=== PATIENT | female | born 1945 | race Caucasian/White ===

== ENCOUNTER 2017-06-13 18:19 | Emergency (ER) | payer OTHER ==
[~2017-06-13] VITALS: Ht 167.6 cm; Wt 75.0 kg
[~2017-06-13 18:19] MED LIST: ATOR80TA PO; METO50TA PO; OMEP20TA39 PO
[2017-06-13 18:22] VITALS: BP 142/89; PULSE 96; RESP 20; TEMP 98.3; O2SAT 96
--- NOTE | 2017-06-13 18:44 | PD ---
Physical Exam Date Seen by Provider: Jun 13, 2017 Time Seen by Provider: 18:40 Data Data Last Documented VS Vital Signs Date Time Temp Pulse Resp B/P (MAP) Pulse Ox O2 Delivery O2 Flow Rate FiO2 06/13/17 18:22 98.3 96 20 142/89 (106) 96 Room Air MDM Supervised Visit with RYAN: No Narrative Course 71 YO F with complaint of BLE swelling and "pressure in my belly." Endorses SOB x "a few weeks." CHAKRABORTY with walking to the mailbox today. Saw PCP this week and was diagnosed with A Fib. PCP Marisa Shirley. Vitals reviewed. Patient seen in triage, awaiting bed placement. Inge Perez Jun 13, 2017 18:44
[2017-06-13 19:05] VITALS: BP 128/68; PULSE 84; RESP 16; TEMP 98.9; O2SAT 97
--- NOTE | 2017-06-13 19:12 | PD ---
HPI Chief Complaint: Edema Time Seen by Provider: 19:10 Travel History International Travel<30 days: No Contact w/Intl Traveler<30days: No Traveled to known affect area: No History of Present Illness HPI 71-year-old female came to the emergency room with history of 10 pounds weight gain in past 2 weeks. She also noticed that both her ankles are swollen and her abdomen seems bigger and mead. Patient was diagnosed with atrial fibrillation couple days ago by her primary care and she was started on diltiazem and Eliquis for that. Patient says that the ankle swelling was just noticed today and that's what alarmed her and she is in the emergency room. No history of chest pain or shortness of breath. She does get tired after walking some. Vital signs are stable. She does not appear to be in any distress. She is in A. fib on the monitor. [facility] Past Medical History Narrative Medical List of her allergies reviewed from the nursing note. Cardiovascular Problems: Yes ?: Not Past Surgical History Hysterectomy: Yes Social History Tobacco Use: No Allergies-Medications (Allergen,Severity, Reaction): Coded Allergies: fish oil (Verified Allergy, Severe, 06/13/17) Red eyes rosuvastatin (Verified Allergy, Severe, 06/13/17) Leg cramping Comments List of the allergies reviewed from the nursing note. Reported Meds & Prescriptions Reported Meds & Active Scripts Active Reported Lorazepam 0.5 Mg Tab 0.5 Mg PO BID PRN Fenofibrate 54 Mg Tab 54 Mg PO DAILY Milk Thistle (Milk Thistle Seed Extract) 200 Mg Capsule 1,000 Mg PO DAILY Omeprazole 40 Mg Cap 40 Mg PO DAILY Metoprolol Tartrate 50 Mg Tab 50 Mg PO BID D3-1000 (Cholecalciferol) 1,000 Unit Cap 1 Cap PO DAILY Co Q 10 (Coenzyme Q10 (Ubidecarenone)) 100 Mg-5 Unit Cap 1 Tab PO DAILY Magnesium Elemental (Magnesium) 30 Mg Tab 250 Mg PO DAILY Atorvastatin (Atorvastatin Calcium) 80 Mg Tab 80 Mg PO HS Aspirin 325 Mg Tab 325 Mg PO DAILY Eliquis (Apixaban) 5 Mg Tab 5 Mg PO BID Diltiazem HCl ER (Diltiazem HCl Extended Release) 120 Mg Cap 1 Cap PO BID Narrative Medication List of her home medications reviewed from the nursing note. Review of Systems Except as stated in HPI: all other systems reviewed are Neg Physical Exam Narrative GENERAL: Awake, alert, no obvious distress SKIN: Focused skin assessment warm/dry. HEAD: Atraumatic. Normocephalic. EYES: Pupils equal and round. No scleral icterus. No injection or drainage. ENT: No nasal bleeding or discharge. Mucous membranes pink and moist. NECK: Trachea midline. No JVD. CARDIOVASCULAR: Irregularly irregular rhythm. No murmur appreciated. RESPIRATORY: No accessory muscle use. Clear to auscultation. Breath sounds equal bilaterally. GASTROINTESTINAL: Abdomen soft, non-tender, nondistended. Hepatic and splenic margins not palpable. MUSCULOSKELETAL: No obvious deformities. No clubbing. No cyanosis. No edema. NEUROLOGICAL: Awake and alert. No obvious cranial nerve deficits. Motor grossly within normal limits. Normal speech. PSYCHIATRIC: Appropriate mood and affect; insight and judgment normal. Data Data Last Documented VS Orders Orders Complete Blood Count With Diff (06/13/17 19:17) Comprehensive Metabolic Panel (06/13/17 19:17) B-Type Natriuretic Peptide (06/13/17 19:17) Prothrombin Time / Inr (Pt) (06/13/17 19:17) Troponin I (06/13/17 19:17) Urinalysis - C+S If Indicated (06/13/17 19:17) Iv Access Insert/Monitor (06/13/17 19:17) Electrocardiogram (06/13/17 19:17) Ecg Monitoring (06/13/17 19:17) Oximetry (06/13/17 19:17) Oxygen Administration (06/13/17 19:17) Sodium Chloride 0.9% Flush (Ns Flush) (06/13/17 19:30) Furosemide Inj (Lasix Inj) (06/13/17 19:30) Labs Laboratory Tests Test 06/13/17 19:25 06/13/17 19:35 White Blood Count 5.2 TH/MM3 Red Blood Count 4.00 MIL/MM3 Hemoglobin 12.9 GM/DL Hematocrit 38.3 % Mean Corpuscular Volume 95.8 FL Mean Corpuscular Hemoglobin 32.3 PG Mean Corpuscular Hemoglobin Concent 33.7 % Red Cell Distribution Width 13.2 % Platelet Count 262 TH/MM3 Mean Platelet Volume 8.1 FL Neutrophils (%) (Auto) 42.4 % Lymphocytes (%) (Auto) 42.1 % Monocytes (%) (Auto) 12.2 % Eosinophils (%) (Auto) 2.5 % Basophils (%) (Auto) 0.8 % Neutrophils # (Auto) 2.2 TH/MM3 Lymphocytes # (Auto) 2.2 TH/MM3 Monocytes # (Auto) 0.6 TH/MM3 Eosinophils # (Auto) 0.1 TH/MM3 Basophils # (Auto) 0.0 TH/MM3 CBC Comment DIFF FINAL Differential Comment Prothrombin Time 11.1 SEC Prothromb Time International Ratio 1.0 RATIO Blood Urea Nitrogen 15 MG/DL Creatinine 0.94 MG/DL Random Glucose 90 MG/DL Total Protein 7.0 GM/DL Albumin 3.6 GM/DL Calcium Level 8.7 MG/DL Alkaline Phosphatase 63 U/L Aspartate Amino Transf (AST/SGOT) 24 U/L Alanine Aminotransferase (ALT/SGPT) 19 U/L Total Bilirubin 0.4 MG/DL Sodium Level 143 MEQ/L Potassium Level 3.8 MEQ/L Chloride Level 111 MEQ/L Carbon Dioxide Level 23.0 MEQ/L Anion Gap 9 MEQ/L Estimat Glomerular Filtration Rate 58 ML/MIN Troponin I LESS THAN 0.02 NG/ML B-Type Natriuretic Peptide 406 PG/ML Urine Color YELLOW Urine Turbidity CLEAR Urine pH 5.0 Urine Specific [place] 1.020 Urine Protein NEG mg/dL Urine Glucose (UA) NEG mg/dL Urine Ketones NEG mg/dL Urine Occult Blood NEG Urine Nitrite NEG Urine Bilirubin NEG Urine Urobilinogen LESS THAN 2.0 MG/DL Urine Leukocyte Esterase SMALL Urine RBC 1 /hpf Urine WBC 1 /hpf Urine Squamous Epithelial Cells 1 /hpf Urine Mucus FEW /lpf Microscopic Urinalysis Comment CULT NOT INDICATED MDM Medical Decision Making Medical Screen Exam Complete: Yes Emergency Medical Condition: Yes Medical Record Reviewed: Yes Interpretation(s) Twelve-lead EKG was reviewed by me. Atrial fibrillation, left axis deviation. Heart rate of 74 bpm. Differential Diagnosis Congestive heart failure, fluid overload Narrative Course 9:38 PM blood test results of back and within acceptable limits. BNP slightly elevated. Patient was given 40 mg of Lasix. She has urinated significantly since then. I'll discharge her home. Procedures EKG Prior to Arrival: No Diagnosis Primary Impression: Fluid overload Qualified Codes: E87.79 - Other fluid overload Additional Impression: Atrial fibrillation Qualified Codes: I48.1 - Persistent atrial fibrillation Referrals: Primary Care Physician 3 days Additional Instructions: Please return to the ER if the condition worsens or any other new concerns. Continue taking her medications like is supposed to. Eat food with low salt diet. Follow-up with your primary care in couple days. Med/Other Pt SpecificInfo: No Change to Meds Disposition: 01 DISCHARGE HOME Condition: Stable Tuan Rossi MD Jun 13, 2017 19:12
[2017-06-13 19:20] VITALS: O2SAT 97
[2017-06-13] MEDS ORDERED: FUROSEMIDE 40 MG/4 ML VIAL IV PUSH ONE (19:30)
[2017-06-13] MEDS ORDERED: SODIUM CHLORIDE 0.9% FLUSH 10 ML FLUSH IVF PRN (19:30)
[2017-06-13] MEDS ORDERED: MAGN30TA PO (19:31)
[2017-06-13] MEDS ORDERED: CHOL1CAP32 PO (19:31)
[2017-06-13] MEDS ORDERED: DILT120C15 PO (19:31)
[2017-06-13] MEDS ORDERED: CO Q100C9 PO (19:31)
[2017-06-13] MEDS ORDERED: METO50TA PO (19:31)
[2017-06-13] MEDS ORDERED: MILK200C2 PO (19:31)
[2017-06-13] MEDS ORDERED: OMEP40CA2 PO (19:31)
[2017-06-13] MEDS ORDERED: ATOR1TAB18 PO (19:31)
[2017-06-13] MEDS ORDERED: APIX5TAB PO (19:31)
[2017-06-13] MEDS ORDERED: FENO54TA PO (19:31)
[2017-06-13] MEDS ORDERED: ASPI325T PO (19:31)
[2017-06-13] MEDS ORDERED: LORA-373 PO (19:31)
[2017-06-13 19:52] LABS: AUTOMATED NEUTROPHIL # 2.2 TH/MM3 (1.8-7.7); BASOPHIL % 0.8 % (0.0-2.0); EOSINOPHIL # 0.1 TH/MM3 (0-0.4); EOSINOPHIL % 2.5 % (0.0-4.0); HEMATOCRIT 38.3 % (35.0-46.0); HEMO FLAGS DIFF FINAL; LYMPH % 42.1 % (9.0-44.0); LYMPHOCYTE # 2.2 TH/MM3 (1.0-4.8); MEAN CELL VOLUME 95.8 FL (80.0-100.0); MEAN CORPUSCULAR HEMOGLOBIN 32.3 PG (27.0-34.0); MEAN CORPUSCULAR HGB CONC 33.7 % (32.0-36.0); MONO % 12.2 % (0.0-8.0); NEUT % 42.4 % (16.0-70.0); PLATELET COUNT 262 TH/MM3 (150-450); RED CELL DISTRIBUTION WIDTH 13.2 % (11.6-17.2); WHITE BLOOD COUNT 5.2 TH/MM3 (4.0-11.0)
[2017-06-13 19:59] LABS: BLOOD, URINE NEG (NEG); COMMENT (UR) CULT NOT INDICATED; CULTURE IF INDICATED CULT NOT INDICATED; GLUCOSE,URINE NEG (NEG); KETONE, URINE NEG (NEG); MUCUS URINE FEW /lpf (OCC); NITRITE,URINE NEG (NEG); SQUAMOUS EPITHELIAL CELL URINE 1 /hpf (0-5); URINE COLOR YELLOW (YELLW/STRAW)
[2017-06-13 20:02] LABS: PROTHROMBIN TIME - PATIENT 11.1 SEC (9.8-11.6)
[2017-06-13 20:07] LABS: ANION GAP 9 MEQ/L (5-15); AST (GOT) 24 U/L (15-37); BLOOD UREA NITROGEN 15 MG/DL (7-18); CHLORIDE 111 MEQ/L (98-107); GLOMERULAR FILTRATION RATE 58 ML/MIN (>89); POTASSIUM 3.8 MEQ/L (3.5-5.1); SODIUM (NA) 143 MEQ/L (136-145)
[2017-06-13 20:08] LABS: ALT (GPT) 19 U/L (10-53)
[2017-06-13 20:11] LABS: ALKALINE PHOSPHATASE 63 U/L (45-117); TOTAL BILIRUBIN ADULT 0.4 MG/DL (0.2-1.0)
[2017-06-13 21:03] VITALS: BP 126/68; PULSE 71; RESP 15; TEMP 98.7; O2SAT 97
--- NOTE | 2017-06-14 09:21 | EKG ---
Date Performed: 06/13/2017 Time Performed: 19:22:58 PTAGE: 71 years EKG: ATRIAL FIBRILLATION LOW QRS VOLTAGE IN PRECORDIAL LEADS LEFT ANTERIOR FASCICULAR BLOCK POSS IBLE ANTERIOR MYOCARDIAL INFARCTION ABNORMAL ECG NO PREVIOUS TRACING DOCTOR: Huan Pizano Interpretating Date/Time 06/14/2017 09:21:12
== END 2017-06-13 21:54 | disposition home or self-care (01) ==
LOC: NEPC 18:19
DX: E87.79 Other fluid overload (principal); I48.1 Persistent atrial fibrillation
CPT/HCPCS: 80053; 81001; 83880; 84484; 85025; 85610; 93005; 96374; 99284; J1940

== ENCOUNTER 2018-01-16 19:38 | Emergency (ER) | payer OTHER ==
[~2018-01-16] VITALS: Ht 167.6 cm; Wt 75.0 kg
[~2018-01-16 19:38] MED LIST changes: +APIX5TAB PO; +ASPI-183 PO; -ATOR80TA PO; +ATOR80TA45 PO; +CHOL1CAP32 PO; +CO Q100C9 PO; +DILT120C15 PO; +FENO54TA PO; +LORA0.5T PO; +MAGN30TA PO; +MILK200C2 PO; -OMEP20TA39 PO; +OMEP40CA2 PO
[2018-01-16 19:53] VITALS: BP 119/66; PULSE 85; RESP 18; TEMP 99.6; O2SAT 98
--- NOTE | 2018-01-16 20:12 | PD ---
HPI Chief Complaint: Skin Problem Time Seen by Provider: 20:08 Travel History International Travel<30 days: No Contact w/Intl Traveler<30days: No Traveled to known affect area: No History of Present Illness HPI 72-year-old female presents emergency department for evaluation of painful bumps on the left side of her posterior neck. Patient states she noticed it about 4 hours ago. She states she has a tenderness on the left side of her scalp that began after these bumps did. Similar to a burning sensation. Lumps are tender to touch. Denies any recent illnesses, fever, or chills. Denies any injury. Denies any other pain. Has no other symptoms to report. PFSH Past Medical History Atrial Fibrillation: Yes Heart Rhythm Problems: Yes Cardiovascular Problems: Yes High Cholesterol: Yes Coronary Artery Disease: Yes Diminished Hearing: No GERD: Yes Hypertension: Yes Tetanus Vaccination: Unknown Influenza Vaccination: No ?: Not Past Surgical History Hysterectomy: Yes Other Surgery: Yes (MASTECTOMY ON right with lymph node involvement, melinoma removed left leg) Social History Alcohol Use: Yes (wine daily) Tobacco Use: No Substance Use: No Allergies-Medications (Allergen,Severity, Reaction): Coded Allergies: fish oil (Verified Allergy, Severe, 01/16/18) Red eyes rosuvastatin (Verified Allergy, Severe, 01/16/18) Leg cramping Reported Meds & Prescriptions Reported Meds & Active Scripts Active Acyclovir 800 Mg Tab 800 Mg PO 5 TIMES A DAY 7 Days Reported Lorazepam 0.5 Mg Tab 0.5 Mg PO BID PRN Fenofibrate 54 Mg Tab 54 Mg PO DAILY Omeprazole 40 Mg Cap 40 Mg PO DAILY Metoprolol Tartrate 50 Mg Tab 50 Mg PO BID D3-1000 (Cholecalciferol) 1,000 Unit Cap 1 Cap PO DAILY Co Q 10 (Coenzyme Q10 (Ubidecarenone)) 100 Mg-5 Unit Cap 1 Tab PO DAILY Magnesium Elemental (Magnesium) 30 Mg Tab 250 Mg PO DAILY Atorvastatin (Atorvastatin Calcium) 80 Mg Tab 80 Mg PO HS Eliquis (Apixaban) 5 Mg Tab 5 Mg PO BID Diltiazem HCl ER (Diltiazem HCl Extended Release) 120 Mg Cap 1 Cap PO BID Review of Systems Except as stated in HPI: all other systems reviewed are Neg Physical Exam Narrative GENERAL: Well-nourished, well-developed female patient, ambulatory no acute distress. SKIN: Focused skin assessment warm/dry. HEAD: Normocephalic. Tenderness elicited palpation over the left scalp. No crepitus. No erythema or edema. No exanthem. No mastoid tenderness EARS: Bilateral pinnae and external canals appear within normal limits. Bilateral tympanic membranes without erythema, dullness or perforation. EYES: No scleral icterus. No injection or drainage. ENT: Mucosa pink and moist. No erythema or exudates. No uvular edema. No uvular , palatal, or tonsillar deviation. Airway patent. Nasal turbinates appear normal without nasal blood, purulent drainage or septal hematoma. NECK: Supple, trachea midline. No JVD. 2 palpable posterior cervical lymph nodes on the left side. They are mobile. They are tender to touch. CARDIOVASCULAR: Regular rate and rhythm without murmurs, gallops, or rubs. RESPIRATORY: Breath sounds equal bilaterally. No accessory muscle use. GASTROINTESTINAL: Abdomen soft, non-tender, nondistended. MUSCULOSKELETAL: No cyanosis, or edema. BACK: Nontender without obvious deformity. No CVA tenderness. Data Data Last Documented VS Vital Signs Date Time Temp Pulse Resp B/P (MAP) Pulse Ox O2 Delivery O2 Flow Rate FiO2 01/16/18 19:53 99.6 85 18 119/66 (83) 98 Orders Orders Dexamethasone Inj (Decadron Inj) (01/16/18 20:30) Ed Discharge Order (01/16/18 20:21) MDM Medical Decision Making Medical Screen Exam Complete: Yes Emergency Medical Condition: Yes Medical Record Reviewed: Yes Differential Diagnosis Adenopathy versus viral syndrome versus herpetic predrOME versus trigeminal neuralgia versus otitis media Narrative Course 72-year-old female presents emergency department for evaluation of painful bumps on the left posterior neck. Physical exam is consistent with adenopathy of the posterior cervical chain on the left. Lymph nodes are tender and mobile. No erythema or edema. No obvious source of infection. Patient does have tenderness elicited palpation along the left scalp. I discussed this with my attending physician. Patient could possibly have shingles however there is no rash at this time. I have discussed with her what to look for. I have encouraged follow-up with her primary care provider. She agrees to return immediately with any acute worsening symptoms. Diagnosis Primary Impression: Posterior cervical lymphadenopathy Additional Impression: Scalp tenderness Referrals: Primary Care Physician Patient Instructions: General Instructions, Lymphadenopathy (ED) Additional Instructions: Follow-up with your primary care provider Return immediately with acute worsening symptoms Med/Other Pt SpecificInfo: Prescription(s) given Scripts Acyclovir (Acyclovir) 800 Mg Tab 800 MG PO 5 TIMES A DAY for Mgmt Viral Infection for 7 Days, TAB 0 Refills Prov: Britni Dos Santos 01/16/18 Disposition: 01 DISCHARGE HOME Condition: Stable Britni Dos Santos Jan 16, 2018 20:12
[2018-01-16] MEDS ORDERED: ACYC800T PO (20:26)
[2018-01-16] MEDS ORDERED: DEXAMETHASONE SOD PHOS 4 MG/ML VIAL IM ONE (20:30)
== END 2018-01-16 20:37 | disposition home or self-care (01) ==
LOC: NEPD 19:38
DX: R59.0 Localized enlarged lymph nodes (principal); E78.00 Pure hypercholesterolemia, unspecified; I10 Essential (primary) hypertension; I25.10 Atherosclerotic heart disease of native coronary artery without angina pectoris; I48.91 Unspecified atrial fibrillation; K21.9 Gastro-esophageal reflux disease without esophagitis; Z79.01 Long term (current) use of anticoagulants
CPT/HCPCS: 96372; 99283; J1100